=== PATIENT | male | born 1945 | race Two or more races ===

== ENCOUNTER 2024-05-10 09:48 | Day surgery (SDC) | payer OTHER ==
[2024-05-10] MEDS ORDERED: BUPIVACAINE HCL 30 ML VIAL IJ ONE (17:45)
[2024-05-10] MEDS ORDERED: LIDOCAINE HCL 1% 20 ML VIAL IJ ONE (17:45)
[2024-05-10] MEDS ORDERED: DEXAMETHASONE SODIUM PHOSPHATE 4 MG/ML VIAL IJ ONE (17:45)
[2024-05-10] MEDS ORDERED: IOHEXOL 240 mgI/ML 100ML BOTT IV ONE (17:45)
== END 2024-05-10 18:40 | disposition home or self-care (01) ==
LOC: CIR.AMB 09:48
PROVIDERS: ATTEND Anesthesiology Pain Medicine
DX: M48.061 Spinal stenosis, lumbar region without neurogenic claudication (principal); M47.897 Other spondylosis, lumbosacral region